=== PATIENT | male | born 1980 | race American Indian/Alaskan Native ===

== ENCOUNTER 2016-07-19 10:02 | Emergency (ER) | payer MEDICAID ==
[2016-07-19 10:15] VITALS: RESP 18; TEMP 98.2
[2016-07-19 11:10] LABS: RBC URINE 4 /hpf (0-3); URINE BACTERIA RARE (<OCC); URINE BILIRUBIN NEGATIVE (NEGATIVE); URINE BLOOD NEGATIVE (NEGATIVE); URINE COLOR Yellow (YELLOW); URINE GLUCOSE (UA) NORMAL (Normal); URINE KETONE NEGATIVE (NEGATIVE); URINE LEUKOCYTE ESTERASE 2+ Leu/uL (Negative); URINE PROTEIN NEGATIVE (NEGATIVE); URINE UROBILINOGEN NORMAL mg/dL (0.2-1.0); WBC URINE 102 /hpf (0-5)
--- NOTE | 2016-07-19 11:31 | C.PDOC ---
History Of Present Illness 35 y/o male c/o white discharge and some bleeding from tip of penis since yesterday. pt sts he was wearing new brand of boxer briefs that were too snug yesterday, and they were constantly rubbing on his penis for hours. denies any dysuria, frequency or urgency. no hx sti. pt has unprotected sex with one partner. no fever or chills, no abdominal pain. Time Seen by Provider: 07/19/16 10:57 Chief Complaint (Nursing): Male Genitourinary History Per: Patient History/Exam Limitations: no limitations Onset/Duration Of Symptoms: Days (1) Current Symptoms Are (Timing): Worse Severity: Moderate Associated Symptoms: denies: Fever, Chills, Nausea, Vomiting Recent travel outside of the [place]: No Past Medical History Reviewed: Historical Data, Nursing Documentation, Vital Signs Vital Signs: Last Vital Signs Temp 98.2 F 07/19/16 10:10 Pulse 78 07/19/16 12:11 Resp 18 07/19/16 12:11 BP 148/82 07/19/16 12:11 Pulse Ox 100 07/19/16 12:25 - Medical History PMH: No Chronic Diseases Surgical History: No Surg Hx Family History: States: Unknown Family Hx - Social History Hx Tobacco Use: No Hx Alcohol Use: No Hx Substance Use: No - Immunization History Hx Tetanus Toxoid Vaccination: No Hx Influenza Vaccination: No Hx Pneumococcal Vaccination: No Review Of Systems Constitutional: Negative for: Fever, Chills Gastrointestinal: Negative for: Nausea, Vomiting, Abdominal Pain Genitourinary: Positive for: Penile Discharge, Penile Pain. Negative for: Dysuria, Frequency, Incontinence, Scrotal Pain Skin: Positive for: Lesions (one at urethral meatus) Physical Exam - Physical Exam Appears: Non-toxic, No Acute Distress (mildly anxious) Skin: Warm, Dry Gastrointestinal/Abdominal: Bowel Sounds, Soft, No Tenderness Male Genital: No Testicular Tenderness, No Testicular Swelling, No Inguinal Tenderness, No Inguinal Swelling, No Scrotal Swelling, Circumcised, Other ( white discharge at urethral meatus, 1 mm erythematous lesion at left urethral meatus) Neurological/Psych: Oriented x3, Normal Speech, Normal Cognition ED Course And Treatment O2 Sat by Pulse Oximetry: 100 Medical Decision Making Medical Decision Making: pt reports one sexual partner only; parthern has no complaints. discussed with patient that source of infection unclear. will be treated for sti and uti and needs to f/u with urology. pt understands. Disposition Counseled Patient/Family Regarding: Diagnosis, Need For Followup, Rx Given - Disposition Referrals: Han Dove MD [Staff Provider] - [facility] [Outside] [facility] [place] [Outside] Disposition: HOME/ ROUTINE Disposition Time: 12:09 Condition: STABLE Additional Instructions: Recommend sexual abstinence until condition clears up and you have seen by a urologist. If your sti tests come back positive, your partner needs treatment. Take antibiotics as prescribed. Drink increased fluids. Wear loose underpants to avoid any rubbing on penis. Follow up with urologist and in medical clinic. Call director home health services if you have any difficulty making an appointment. Prescriptions: Nitrofurantoin Macrocrystals [Macrobid] 100 mg PO BID #14 cap Instructions: Nonspecific Urethritis in Men (ED), Urinary Tract Infection in Men (ED) Forms: General Discharge Instructions - Clinical Impression Clinical Impression: Urethritis, unspecified, Urinary tract infection
[2016-07-19] MEDS ORDERED: cefTRIAXone (Rocephin) 250 mg Inj IM STA (11:43)
[2016-07-19 12:12] VITALS: BP 148/82; PULSE 78
[2016-07-19 12:24] VITALS: O2SAT 100
== END 2016-07-19 12:20 | disposition home or self-care (01) ==
LOC: C.ER 10:02
DX: N34.2 Other urethritis (principal); N39.0 Urinary tract infection, site not specified
CPT/HCPCS: 81001; 87086; 87491; 87591; 96372; 99284; J0696

== ENCOUNTER 2016-08-11 02:13 | Emergency (ER) | payer MEDICAID ==
--- NOTE | 2016-08-11 03:57 | C.PDOC ---
History Of Present Illness Patient is a 35 year old male who presents to the ER with a complaint of pain and swelling to the left index finger after hitting it on a wall [employer]. Denies weakness or numbness. Time Seen by Provider: 08/11/16 02:38 Chief Complaint (Nursing): Upper Extremity Problem/Injury History Per: Patient History/Exam Limitations: no limitations Onset/Duration Of Symptoms: Hrs Current Symptoms Are (Timing): Still Present Exacerbating Factor(s): Nothing Recent travel outside of the [place]: No Past Medical History Reviewed: Historical Data, Nursing Documentation, Vital Signs Vital Signs: Last Vital Signs Temp 98.4 F 08/11/16 04:16 Pulse 60 08/11/16 04:16 Resp 16 08/11/16 04:16 BP 128/90 08/11/16 04:16 Pulse Ox 98 08/11/16 04:16 - Medical History PMH: No Chronic Diseases Surgical History: No Surg Hx Family History: States: Unknown Family Hx - Social History Hx Tobacco Use: No Hx Alcohol Use: Yes Hx Substance Use: Yes - Immunization History Hx Tetanus Toxoid Vaccination: No Hx Influenza Vaccination: No Hx Pneumococcal Vaccination: No Review Of Systems Musculoskeletal: Positive for: Hand Pain (Left index finger) Neurological: Negative for: Weakness, Numbness Physical Exam - Physical Exam Appears: Non-toxic Skin: Normal Color, Warm, Dry Head: Atraumatic, Normacephalic Oral Mucosa: Moist Extremity: Normal ROM, Tenderness (Minimal on palpation of left index finger), Capillary Refill (Good), No Deformity Neurological/Psych: Oriented x3, Normal Speech, Normal Cognition, Normal Motor, Normal Sensation ED Course And Treatment O2 Sat by Pulse Oximetry: 99 (Room air) Pulse Ox Interpretation: Normal - Other Rad Left hand x-ray X-Ray: Interpreted by Me, Viewed By Me Interpretation: No acute fractures or dislocations. Progress Note: Motrin administered. Left hand x-ray ordered. Patient offered finger splint and advised to follow up with hand specialist. Disposition Counseled Patient/Family Regarding: Diagnosis, Need For Followup, Rx Given - Disposition Referrals: Non [facility] Provider, [Primary Care Provider] - [facility] [Outside] Disposition: HOME/ ROUTINE Disposition Time: 03:55 Condition: STABLE Additional Instructions: Follow up with PMD or in clinic Keep finger in splint Take meds as directed Return to ER if worse Prescriptions: Ibuprofen [Motrin] 600 mg PO Q6H #20 tab Instructions: Finger Sprain (ED) - Clinical Impression Clinical Impression: Finger contusion - Scribe Statement The provider has reviewed the documentation as recorded by the Scribjasmina Lopez All medical record entries made by the Ziaibe were at my direction and personally dictated by me. I have reviewed the chart and agree that the record accurately reflects my personal performance of the history, physical exam, medical decision making, and the department course for this patient. I have also personally directed, reviewed, and agree with the discharge instructions and disposition.
[2016-08-11 04:18] VITALS: BP 128/90; PULSE 60; RESP 16; TEMP 98.4
[2016-08-11 04:27] VITALS: O2SAT 99
--- NOTE | 2016-08-11 08:51 | RAD ---
PROCEDURE: Left ring finger radiographs. HISTORY: pain, trauma, to left 4th finger COMPARISON: None. TECHNIQUE: AP radiograph of the left hand, as well as spot oblique and lateral images of left ring finger were obtained. FINDINGS: LEFT RING FINGER: No fracture or focal lesion.. JOINTS: Normal. SOFT TISSUES: Mild soft tissues left 4th proximal interphalangeal joint level OTHER FINDINGS: 5 mm well corticated ossification borders radial styloid- accessory ossifications center she has old osseous avulsion. IMPRESSION: No acute fracture. Tissue swelling. Other findings as above
== END 2016-08-11 04:17 | disposition home or self-care (01) ==
LOC: SUPCPDRO 02:13 → C.ER 02:13
DX: S60.022A Contusion of left index finger without damage to nail, initial encounter (principal); W22.01XA Walked into wall, initial encounter; Y93.89 Activity, other specified; Y92.89 Other specified places as the place of occurrence of the external cause

== ENCOUNTER 2017-04-16 20:04 | Emergency (ER) | payer MEDICAID ==
[2017-04-16 20:13] VITALS: TEMP 97.6; O2SAT 98
--- NOTE | 2017-04-16 20:37 | C.PDOC ---
History Of Present Illness 36 y/o male presents complaining of right foot pain since last night. He notes it starts in his MTP of his right great toe and then his foot becomes more swollen and painful. Patient has had multiple episodes of this in the past but now they are becoming more frequent. He has never been diagnosed with gout. Patient admits to drinking alcohol and eating red meat frequently over the last few days. Denies any trauma, change in sensation, fevers, lower leg pain or swelling. Did not take any medications for symptom relief. Time Seen by Provider: 04/16/17 20:23 Chief Complaint (Nursing): Lower Extremity Problem/Injury History Per: Patient History/Exam Limitations: no limitations Onset/Duration Of Symptoms: Days (x2) Current Symptoms Are (Timing): Still Present Past Medical History Reviewed: Historical Data, Nursing Documentation, Vital Signs Vital Signs: Last Vital Signs Temp 97.6 F 04/16/17 20:10 Pulse 62 04/16/17 21:03 Resp 20 04/16/17 21:03 BP 148/72 04/16/17 21:03 Pulse Ox 98 04/16/17 21:26 - Medical History PMH: No Chronic Diseases Other Surgeries: Left eye socket surgery Family History: States: Unknown Family Hx - Social History Hx Tobacco Use: No Hx Alcohol Use: Yes Hx Substance Use: Yes - Immunization History Hx Tetanus Toxoid Vaccination: No Hx Influenza Vaccination: No Hx Pneumococcal Vaccination: No Review Of Systems Except As Marked, All Systems Reviewed And Found Negative. Constitutional: Negative for: Fever Musculoskeletal: Positive for: Foot Pain. Negative for: Other (lower leg pain or swelling) Neurological: Negative for: Weakness, Numbness Physical Exam - Physical Exam Appears: Non-toxic, No Acute Distress Skin: Normal Color, Warm, Dry Head: Atraumatic, Normacephalic Eye(s): bilateral: Normal Inspection, EOMI Nose: Normal Oral Mucosa: Moist Neck: Normal ROM, Supple Chest: Symmetrical Respiratory: No Accessory Muscle Use, Other (speaking full sentences) Extremity: Normal ROM, Tenderness (and swelling to the MTP of right great toe), No Calf Tenderness, Capillary Refill (< 2 sec), Swelling Pulses: Left Dorsalis Pedis: Normal, Right Dorsalis Pedis: Normal Neurological/Psych: Oriented x3, Normal Speech, Normal Sensation, No Other ( focal deficits) ED Course And Treatment O2 Sat by Pulse Oximetry: 98 (RA) Pulse Ox Interpretation: Normal Progress Note: Patient given Colchine and Toradol. Counseled regarding diagnosis and diet. Advised to follow up with primary doctor in 1-2 days. case discsused and pt evaluated by Dr Castrejon, agreed upon plan and treatment. Disposition Counseled Patient/Family Regarding: Diagnosis, Need For Followup, Rx Given - Disposition Referrals: Non [facility] Provider, [Primary Care Provider] - Disposition: HOME/ ROUTINE Disposition Time: 20:37 Condition: STABLE Additional Instructions: Follow up with your primary medical doctor or clinic in 2-5 days for further evaluation. Take medications as prescribed. Return to the emergency department at any time if symptoms persist or worsen. Prescriptions: Allopurinol [Zyloprim] 100 mg PO DAILY #20 tab Colchicine [Mitigare] 0.6 mg PO TID #8 capsule Indomethacin [Indocin] 25 mg PO TID #20 cap Instructions: Gout (DC) Forms: [employer] ([place]) - POA Present On Arrival: None - Clinical Impression Clinical Impression: Gout - PA / CITIZEN PARTICIPATION SPECIALIST / Resident Statement MD/DO has reviewed & agrees with the documentation as recorded. - Scribe Statement The provider has reviewed the documentation as recorded by the Scribe (Ledy Dangelo) All medical record entries made by the Scribe were at my direction and personally dictated by me. I have reviewed the chart and agree that the record accurately reflects my personal performance of the history, physical exam, medical decision making, and the department course for this patient. I have also personally directed, reviewed, and agree with the discharge instructions and disposition.
[2017-04-16 21:04] VITALS: BP 148/72; PULSE 62; RESP 20
== END 2017-04-16 21:02 | disposition home or self-care (01) ==
LOC: C.ER 20:04 → SUPCPDRO 20:04 → C.ER 21:02
DX: M10.9 Gout, unspecified (principal)
CPT/HCPCS: 96372; 99285; J1885

== ENCOUNTER 2017-08-17 20:37 | Emergency (ER) | payer MEDICAID ==
[2017-08-17 20:42] VITALS: RESP 20
--- NOTE | 2017-08-17 21:47 | C.PDOC ---
History Of Present Illness 36 years old male presents to ED for complaints of headache, hip pain, and lower back pain that began earlier today. Patient [place] eat anything. Patient also reports associated symptoms of nausea and chills. Denies vomiting, fever, or any other physical complaints. Time Seen by Provider: 08/17/17 21:47 Chief Complaint (Nursing): Hip Pain History Per: Patient History/Exam Limitations: no limitations Onset/Duration Of Symptoms: Hrs Current Symptoms Are (Timing): Still Present Severity: Moderate Pain Scale Rating Of: 4 Recent travel outside of the [place]: No Additional History Per: Family Past Medical History Reviewed: Historical Data, Nursing Documentation, Vital Signs Vital Signs: Last Vital Signs Temp 99.4 F 08/17/17 23:42 Pulse 63 08/17/17 23:42 Resp 20 08/17/17 23:42 BP 145/75 08/17/17 23:42 Pulse Ox 97 08/17/17 23:42 - Medical History PMH: No Chronic Diseases Family History: States: Unknown Family Hx - Social History Hx Tobacco Use: No Hx Alcohol Use: Yes Hx Substance Use: Yes - Immunization History Hx Tetanus Toxoid Vaccination: No Hx Influenza Vaccination: No Hx Pneumococcal Vaccination: No Review Of Systems Constitutional: Positive for: Chills, Malaise. Negative for: Fever Eyes: Negative for: Redness ENT: Negative for: Throat Pain Cardiovascular: Negative for: Chest Pain Respiratory: Negative for: Shortness of Breath Gastrointestinal: Positive for: Nausea. Negative for: Vomiting, Abdominal Pain Genitourinary: Negative for: Dysuria Musculoskeletal: Positive for: Back Pain (Lower back), Other (Hip pain) Skin: Negative for: Rash Neurological: Positive for: Headache. Negative for: Weakness, Numbness Psych: Negative for: Anxiety Physical Exam - Physical Exam Appears: Non-toxic, No Acute Distress Skin: Warm, Dry Head: Normacephalic Eye(s): bilateral: Normal Inspection Oral Mucosa: Dry Lips: Other (Dry ) Neck: Trachea Midline, Supple Chest: Symmetrical Cardiovascular: Rhythm Regular Respiratory: No Rales, No Rhonchi, No Wheezing Gastrointestinal/Abdominal: Soft, No Tenderness, No Distention Back: Normal Inspection Extremity: Normal ROM Extremity: Bilateral: Atraumatic, Normal Color And Temperature, Normal ROM Pulses: Left Dorsalis Pedis: Normal, Right Dorsalis Pedis: Normal Neurological/Psych: Oriented x3, Normal Speech (Speaking in full sentences ) Gait: Steady ED Course And Treatment - Laboratory Results Result Diagrams: 08/17/17 22:11 08/17/17 22:11 ECG: Interpreted By Me, Viewed By Me ECG Rhythm: Sinus Rhythm (88), Nonspecific Changes O2 Sat by Pulse Oximetry: 98 (RA) Pulse Ox Interpretation: Normal Progress Note: Administered Toradol and IV fluids. Ordered blood work, BG, EKG , and urinalysis. Reevaluation Time: 23:58 Reassessment Condition: Improved Medical Decision Making Medical Decision Making: Upon provider reevaluation patient is feeling better, is medically stable, and requires no further treatment in the ED at this time. Patient will be discharged home . Counseling was provided and all questions were answered regarding diagnosis and need for follow up with the referred clinic. There is agreement to discharge plan. Return if symptoms persist or worsen. Disposition Counseled Patient/Family Regarding: Studies Performed, Diagnosis, Need For Followup - Disposition Referrals: [facility] [Outside] [facility] [Outside] Disposition: HOME/ ROUTINE Disposition Time: 21:47 Condition: FAIR Additional Instructions: Please return if symptoms recur Instructions: Heat Exhaustion and Heat Stroke (DC), Rhabdomyolysis (DC) Forms: [employer] (Irish) - Clinical Impression Clinical Impression: Hip pain, Heat exhaustion, Rhabdomyolysis - Scribe Statement The provider has reviewed the documentation as recorded by the Scribjasmina Benitez All medical record entries made by the Scribe were at my direction and personally dictated by me. I have reviewed the chart and agree that the record accurately reflects my personal performance of the history, physical exam, medical decision making, and the department course for this patient. I have also personally directed, reviewed, and agree with the discharge instructions and disposition.
[2017-08-17] MEDS ORDERED: Sodium Chloride 0.9% 2,000 ML IV ONE (21:58)
[2017-08-17 22:15] LABS: BASO % 0.5 % (0.0-2.0); EOS % 0.2 % (0.0-4.0); HEMOGLOBIN 13.4 g/dL (12.0-18.0); LYMPH # 0.5 K/uL (1.0-4.3); LYMPH % 7.3 % (20.0-40.0); MEAN CELL VOLUME 83.1 fL (80.0-94.0); MEAN CORPUSCULAR HEMOGLOBIN 27.1 pg (27.0-31.0); MEAN CORPUSCULAR HGB CONC 32.7 g/dL (33.0-37.0); MONO # 0.7 K/uL (0.0-0.8); MONO % 10.5 % (0.0-10.0); NEUT # 5.8 K/uL (1.8-7.0); NEUT % 81.5 % (50.0-75.0); NRBC % 0.1 % (0.0-2.0); PLATELET COUNT 166 K/uL (130-400); RBC 4.94 Mil/uL (4.40-5.90); RED CELL DISTRIBUTION WIDTH 14.8 % (11.5-14.5); WHITE BLOOD COUNT 7.1 K/uL (4.8-10.8)
[2017-08-17 22:22] LABS: URINE BILIRUBIN NEGATIVE (NEGATIVE); URINE BLOOD NEGATIVE (NEGATIVE); URINE CLARITY Clear (Clear); URINE COLOR Yellow (YELLOW); URINE GLUCOSE (UA) NORMAL (Normal); URINE LEUKOCYTE ESTERASE NEG Leu/uL (Negative); URINE PROTEIN NEGATIVE (NEGATIVE); URINE UROBILINOGEN NORMAL mg/dL (0.2-1.0)
[2017-08-17 22:27] LABS: INR 1.1; PROTHROMBIN TIME 12.4 SECONDS (9.7-12.2)
[2017-08-17 22:32] LABS: ALB/GLOB RATIO 1.7 (1.0-2.1); ALBUMIN 4.6 g/dL (3.5-5.0); ALT/SGPT 44 U/L (21-72); AST/SGOT 43 U/L (17-59); BLOOD UREA NITROGEN 11 mg/dL (9-20); CALCIUM 9.6 mg/dl (8.6-10.4); GFR AFRICAN-AMERICAN > 60; GFR NON-AFRICAN AMERICAN > 60; LIPASE 86 U/L (23-300)
[2017-08-17 22:35] LABS: VENOUS BLOOD GAS BASE EXCESS 2.3 mmol/L (0.0-2.0); VENOUS BLOOD GAS PCO2 39 mmHg (40-60); VENOUS BLOOD GAS PO2 40 mm/Hg (30-55); VENOUS BLOOD PH 7.44 (7.32-7.43)
[2017-08-17 22:49] LABS: LYMPHOCYTE 5 % (20-40); MONOCYTE 5 % (0-10); NEUTROPHIL 90 % (50-75); PLATELET ESTIMATE NORMAL (NORMAL); TOTAL CELLS COUNTED 100
[2017-08-17 23:43] VITALS: BP 145/75; PULSE 63; TEMP 99.4
[2017-08-18] VITALS: O2SAT 98
--- NOTE | 2017-08-19 20:58 | CARD ---
APPROVED REPORT EKG Measurement Heart [id number] <Conclusion> Normal sinus rhythm Normal ECG
== END 2017-08-18 00:11 | disposition home or self-care (01) ==
LOC: C.ER 20:37
DX: M25.559 Pain in unspecified hip (principal); M62.82 Rhabdomyolysis; T67.5XXA Heat exhaustion, unspecified, initial encounter
CPT/HCPCS: 80053; 81001; 82550; 82803; 83690; 83735; 85025; 85044; 85610; 85730; 93005; 96361; 96374; 99285; J1885; J7030

== ENCOUNTER 2018-03-10 20:01 | Emergency (ER) | payer MEDICAID ==
--- NOTE | 2018-03-10 20:12 | C.PDOC ---
History Of Present Illness Patient presents to the ER with a complaint of intermittent headache. He reports he sometimes gets dizzy. Denies nausea, vomiting, or neuro deficits. Time Seen by Provider: 03/10/18 20:11 History Per: Patient History/Exam Limitations: no limitations Onset/Duration Of Symptoms: Days Current Symptoms Are (Timing): Still Present Severity: Moderate Pain Scale Rating Of: 4 Preceeding Symptoms: None Associated Symptoms: Other (Dizziness). denies: Nausea, Vomiting Recent travel outside of the [place]: No Past Medical History Reviewed: Historical Data, Nursing Documentation, Vital Signs Family History: States: No Known Family Hx - Social History Hx Tobacco Use: No Hx Alcohol Use: Yes Hx Substance Use: Yes - Immunization History Hx Tetanus Toxoid Vaccination: No Hx Influenza Vaccination: No Hx Pneumococcal Vaccination: No Review Of Systems Constitutional: Negative for: Fever, Chills Cardiovascular: Negative for: Chest Pain, Palpitations Respiratory: Negative for: Cough, Shortness of Breath Gastrointestinal: Negative for: Nausea, Vomiting Neurological: Positive for: Headache, Dizziness. Negative for: Weakness, Numbness Physical Exam - Physical Exam Appears: Non-toxic Skin: Warm, Dry Head: Normacephalic Eye(s): bilateral: Normal Inspection, PERRL, EOMI Oral Mucosa: Moist Neck: Trachea Midline, Supple Chest: Symmetrical, No Tenderness Cardiovascular: Rhythm Regular Respiratory: No Rales, No Rhonchi, No Wheezing Gastrointestinal/Abdominal: Soft, No Tenderness Neurological/Psych: Oriented x3, Normal Speech, Normal Cognition, Other (No focal deficits, no nystagmus) ED Course And Treatment - Laboratory Results Result Diagrams: 03/10/18 22:54 03/10/18 22:54 O2 Sat by Pulse Oximetry: 98 Pulse Ox Interpretation: Normal Progress Note: CT head ordered. Motrin and zofran administered po, because pt refused IV. 10:25PM Pt agrees with IV, blood work. 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 pt refuses any iv medication Reevaluation Time: 00:34 Reassessment Condition: Improved Disposition Counseled Patient/Family Regarding: Studies Performed, Diagnosis, Need For Followup - Disposition Referrals: Grayson Israel MD [Staff Provider] - Disposition: HOME/ ROUTINE Disposition Time: 20:12 Condition: FAIR Additional Instructions: Please return if symptoms recur Instructions: Headache, Adult (DC), Sinus Headache (DC) - Clinical Impression Clinical Impression: Headache, Chronic sinusitis - Scribe Statement The provider has reviewed the documentation as recorded by the Scribe Chance Lopez All medical record entries made by the Ziaibe were at my direction and personally dictated by me. I have reviewed the chart and agree that the record accurately reflects my personal performance of the history, physical exam, medical decision making, and the department course for this patient. I have also personally directed, reviewed, and agree with the discharge instructions and disposition.
[2018-03-10 23:01] LABS: BASO # 0.1 K/uL (0.0-0.2); BASO % 0.7 % (0.0-2.0); EOS # 0.1 K/uL (0.0-0.7); EOS % 0.6 % (0.0-4.0); HEMOGLOBIN 13.7 g/dL (12.0-18.0); LYMPH # 2.6 K/uL (1.0-4.3); LYMPH % 29.8 % (20.0-40.0); MEAN CORPUSCULAR HEMOGLOBIN 27.3 pg (27.0-31.0); MEAN CORPUSCULAR HGB CONC 31.6 g/dL (33.0-37.0); MONO # 0.8 K/uL (0.0-0.8); MONO % 8.9 % (0.0-10.0); NEUT # 5.3 K/uL (1.8-7.0); NRBC % 0.1 % (0.0-2.0); RBC 5.02 Mil/uL (4.40-5.90); RED CELL DISTRIBUTION WIDTH 14.8 % (11.5-14.5); WHITE BLOOD COUNT 8.8 K/uL (4.8-10.8)
[2018-03-10 23:11] LABS: ALB/GLOB RATIO 1.8 (1.0-2.1); ALT/SGPT 26 U/L (21-72); AST/SGOT 30 U/L (17-59); BLOOD UREA NITROGEN 17 mg/dL (9-20); CALCIUM 9.4 mg/dl (8.6-10.4); GFR NON-AFRICAN AMERICAN > 60
[2018-03-10 23:12] LABS: MEAN CELL VOLUME 86.5 fL (80.0-94.0)
[2018-03-10 23:14] LABS: INR 1.1; PROTHROMBIN TIME 12.4 SECONDS (9.7-12.2)
[2018-03-10] MEDS ORDERED: Iodixanol 320 MG/ML 100 ML BOTTLE IV ONE (23:19)
[2018-03-10 23:35] VITALS: BP 146/82; PULSE 58; RESP 16; TEMP 97.7
[2018-03-11 00:36] VITALS: O2SAT 98
--- NOTE | 2018-03-11 07:19 | CT ---
Date of service: 03/10/2018 PROCEDURE: CT HEAD WITHOUT CONTRAST. HISTORY: headache COMPARISON: None available. TECHNIQUE: Axial computed tomography images were obtained through the head/brain without intravenous contrast. Radiation dose: Total exam DLP = 1192.37 mGy-cm. This CT exam was performed using one or more of the following dose reduction techniques: Automated exposure control, adjustment of the mA and/or kV according to patient size, and/or use of iterative reconstruction technique. FINDINGS: HEMORRHAGE: No intracranial hemorrhage. BRAIN: No mass effect or edema. No atrophy or chronic microvascular ischemic changes. Parenchymal calcification noted within the posterior left occipital lobe. VENTRICLES: Unremarkable. No hydrocephalus. CALVARIUM: Unremarkable. PARANASAL SINUSES: Dense complete opacification of the right maxillary sinus MASTOID AIR CELLS: Unremarkable as visualized. No inflammatory changes. OTHER FINDINGS: None. IMPRESSION: No acute intracranial abnormality. If symptoms persists, consider correlation with MRI. Complete opacification of the left maxillary sinus with bony thickening and slight expansion. This may represent chronic sinus disease. Clinical correlation. A preliminary report was generated at 10:09 p.m. on 03/10/[address] David Samuel from [employer].
--- NOTE | 2018-03-11 09:05 | CT ---
Date of service: 03/10/2018 PROCEDURE: CT Angiography of the Brain and Neck. HISTORY: severe headache, hx of anneurysm COMPARISON: CT Brain/Neck angiography available for comparison. Correlation is made in part with prior cervical spine CT 10/03/2013. TECHNIQUE: CT angiography of the head and neck was performed following intravenous contrast administration. Coronal and sagittal maximum intensity projection reformatted images were generated. Contrast Dose: Visipaque 320, 100 cc Radiation dose: Total exam DLP = 656.12 mGy-cm. This CT exam was performed using one or more of the following dose reduction techniques: Automated exposure control, adjustment of the mA and/or kV according to patient size, and/or use of iterative reconstruction technique. FINDINGS: INTERNAL CEREBRAL ARTERIES: Unremarkable. The skull base, petrous, cavernous and supraclinoid segments are bilaterally widely patent. ANTERIOR CEREBRAL ARTERIES: Unremarkable. A1 and A2 segments are widely patent. Smaller distal branches unremarkable, as visualized. MIDDLE CEREBRAL ARTERIES: Unremarkable. M1 and M2 segments are widely patent. Perisylvian branches grossly symmetric. POSTERIOR CIRCULATION: Basilar Artery: Unremarkable. Distal Vertebral Arteries: Right dominant vertebrobasilar circulation. Posterior Cerebral Arteries: Unremarkable. Posterior Inferior Cerebellar Arteries: Unremarkable. NECK CTA: Common Carotid arteries: The bilateral common carotid appear widely patent from their origins to their bifurcations with no significant stenosis appreciated. No evidence to suggest common carotid artery dissection. Internal Carotid arteries: No significant stenosis is appreciated throughout the cervical internal carotid artery segments bilaterally and there is no evidence of dissection either. External Carotid arteries: Appear unremarkable bilaterally. Vertebral arteries: The bilateral vertebral arteries appear normal in caliber from their origins to their distal cervical segments. No significant stenosis or definite pattern of dissection. ANEURYSM/ VASCULAR MALFORMATIONS: None. OTHER FINDINGS: Incidental note is made of a hypodense lesion inferior to left thyroid lobe at the left parasagittal thoracic inlet measuring 3.5 x 3.0 cm dating back at least to prior cervical spine CT 10/03/2013. If not artery evaluated, consider follow-up CT or MRI of the neck with and without contrast for added characterization. IMPRESSION: 1. No significant stenosis or definite occlusion in both identified throughout CT angiography of the brain and neck as discussed above. 2. Incidental 3.5 x 3.0 cm lucent lesion inferior to left thyroid lobe at the left parasagittal thoracic inlet of indeterminate origin. It is not significantly changed in size compared to prior cervical spine CT 10/03/2013 likely reflects a benign entity. Further characterization can be provided by CT or MRI of the neck with and without contrast as previously recommended, if not already evaluated. Findings discussed with Dr. Daugherty with written down and read back verification 03/11/2018 8:55 a.m.. According findings with preliminary [facility] report regarding angiography but discordant regarding thoracic inlet lesion. Preliminary report provided by Kraig, 03/11/2018 12:27 a.m..
== END 2018-03-11 00:39 | disposition home or self-care (01) ==
LOC: C.ER 20:01
DX: R51 Headache (principal); J32.9 Chronic sinusitis, unspecified
CPT/HCPCS: 70450; 70496; 70498; 80053; 82948; 85025; 85610; 99285; Q9967